=== PATIENT | male | born 1985 | race Caucasian/White ===

== ENCOUNTER → 2016-09-16 | Outpatient (CLI) | payer BC ==
[2016-09-16 08:26] LABS: ABSOLUTE BASOPHILS # (AUTO) 0.1 10^3/uL (0.0-0.2); ABSOLUTE EOSINOPHILS # (AUTO) 0.1 10^3/uL (0.0-0.6); ABSOLUTE LYMPHOCYTES (AUTO) 2.4 10^3/uL (0.5-4.7); ABSOLUTE NEUT (AUTO) 4.1 10^3/uL (1.7-8.2); BASOPHILS % (AUTO) 0.9 % (0-2); EOSINOPHILS % (AUTO) 1.5 % (0-6); HEMATOCRIT 51.9 % (37.9-51.0); HEMOGLOBIN 18.3 g/dL (13.5-17.0); LYMPHOCYTES % (AUTO) 31.3 % (13-45); MEAN CORPUSCULAR HEMOGLOBIN 30.2 pg (27.0-33.4); MEAN CORPUSCULAR HGB CONC 35.2 g/dL (32.0-36.0); MEAN CORPUSCULAR VOLUME 86 fl (80-97); MONOCYTES % (AUTO) 12.6 % (3-13); RED BLOOD COUNT 6.05 10^6/uL (4.35-5.55); RED CELL DISTRIBUTION WIDTH 12.7 % (11.5-14.0); SEGMENTED NEUTROPHILS % (AUTO) 53.7 % (42-78); WHITE BLOOD COUNT 7.6 10^3/uL (4.0-10.5)
[2016-09-16 08:30] LABS: ABSOLUTE BASOPHILS # (AUTO) 0.1 10^3/uL (0.0-0.2); ABSOLUTE EOSINOPHILS # (AUTO) 0.1 10^3/uL (0.0-0.6); ABSOLUTE LYMPHOCYTES (AUTO) 2.4 10^3/uL (0.5-4.7); ABSOLUTE NEUT (AUTO) 4.1 10^3/uL (1.7-8.2); BASOPHILS % (AUTO) 0.9 % (0-2); EOSINOPHILS % (AUTO) 1.5 % (0-6); HEMATOCRIT 51.9 % (37.9-51.0); HEMOGLOBIN 18.3 g/dL (13.5-17.0); LYMPHOCYTES % (AUTO) 31.3 % (13-45); MEAN CORPUSCULAR HEMOGLOBIN 30.2 pg (27.0-33.4); MEAN CORPUSCULAR HGB CONC 35.2 g/dL (32.0-36.0); MEAN CORPUSCULAR VOLUME 86 fl (80-97); MONOCYTES % (AUTO) 12.6 % (3-13); RED BLOOD COUNT 6.05 10^6/uL (4.35-5.55); RED CELL DISTRIBUTION WIDTH 12.7 % (11.5-14.0); SEGMENTED NEUTROPHILS % (AUTO) 53.7 % (42-78); WHITE BLOOD COUNT 7.6 10^3/uL (4.0-10.5)
[2016-09-16 09:02] LABS: ALANINE AMINOTRANSFERASE 34 U/L (21-72); ALBUMIN 5.4 g/dL (3.5-5.0); ALKALINE PHOSPHATASE 69 U/L (38-126); ANION GAP 14 (5-19); ASPARTATE AMINO TRANSFERASE 24 U/L (17-59); BILIRUBIN,TOTAL 1.2 mg/dL (0.2-1.3); BLOOD UREA NITROGEN 20 mg/dL (7-20); CALCIUM 10.5 mg/dL (8.4-10.2); CARBON DIOXIDE 32 mmol/L (22-30); CHLORIDE 94 mmol/L (98-107); CHOLESTEROL 271.99 mg/dL (0-200); CREATININE RESULT 1.13 mg/dL (0.52-1.25); Direct HDL 76 mg/dL (>40); GLUCOSE 97 mg/dL (75-110); POTASSIUM 3.5 mmol/L (3.6-5.0); SODIUM 139.9 mmol/L (137-145); TOTAL PROTEIN 7.9 g/dL (6.3-8.2); TRIGLYCERIDES 145 mg/dL (<150)
[2016-09-16 09:12] LABS: ERYTHROCYTE SEDIMENTATION RATE 3 mm/hr (0-15)
[2016-09-16 09:13] LABS: DIRECT LDL 150 mg/dL (<100)
[2016-09-17 11:38] LABS: JO-1 ANTIBODY <0.2 AI (0.0-0.9)
[2016-09-18 07:50] LABS: CYCLIC CITRUL PEPTIDE IGG/A AB 2 units (0-19)
[2016-09-19 17:37] LABS: CYTOPLASMIC (C-ANCA) <1:20 titer (Neg:<1:20)
[2016-09-21 13:31] LABS: HLA B 27 DISEASE ASSOCIATION Negative (.)
== END ==
LOC: OD 07:14
DX: I10 Essential (primary) hypertension (principal); Z79.899 Other long term (current) drug therapy; I77.6 Arteritis, unspecified
CPT/HCPCS: 36415; 80053; 80061; 83036; 84443; 85025; 85652; 86021; 86140; 86200; 86225; 86235; 86430; 86812

== ENCOUNTER → 2016-09-30 | Outpatient (CLI) | payer BC ==
[2016-09-30 12:06] LABS: APPEARANCE,URINE CLEAR; BILIRUBIN,URINE NEGATIVE (NEGATIVE); GLUCOSE, URINE NEGATIVE (NEGATIVE); KETONES,URINE NEGATIVE (NEGATIVE); LEUKOCYTE ESTERASE,URINE NEGATIVE (NEGATIVE); NITRITE,URINE NEGATIVE (NEGATIVE); PROTEIN,URINE NEGATIVE (NEGATIVE); URINE SPECIFIC GRAVITY 1.013; UROBILINOGEN,URINE NEGATIVE mg/dL (<2.0)
[2016-09-30 12:26] LABS: CALCIUM 10.1 mg/dL (8.4-10.2); PHOSPHORUS 3.6 mg/dL (2.5-4.5)
== END ==
LOC: OD 11:00
DX: E83.52 Hypercalcemia (principal); D75.1 Secondary polycythemia; E66.9 Obesity, unspecified; E78.00 Pure hypercholesterolemia, unspecified
CPT/HCPCS: 36415; 81001; 82310; 82668; 83970; 84100

== ENCOUNTER → 2016-09-30 | Outpatient (CLI) | payer BC | LOC: OD 11:51 | DX: I10 Essential (primary) hypertension (principal) | CPT/HCPCS: 71020 ==

== ENCOUNTER → 2017-02-10 | Outpatient (CLI) | payer BC ==
[2017-02-10 08:32] LABS: ALANINE AMINOTRANSFERASE 41 U/L (21-72); ALBUMIN 4.5 g/dL (3.5-5.0); ALKALINE PHOSPHATASE 73 U/L (38-126); ANION GAP 10 (5-19); ASPARTATE AMINO TRANSFERASE 25 U/L (17-59); BILIRUBIN,DIRECT 0.2 mg/dL (0.0-0.4); BILIRUBIN,TOTAL 0.8 mg/dL (0.2-1.3); BLOOD UREA NITROGEN 18 mg/dL (7-20); CALCIUM 9.5 mg/dL (8.4-10.2); CARBON DIOXIDE 27 mmol/L (22-30); CHLORIDE 103 mmol/L (98-107); CHOLESTEROL 157.88 mg/dL (0-200); CREATININE RESULT 0.98 mg/dL (0.52-1.25); Direct HDL 56 mg/dL (>40); GLUCOSE 94 mg/dL (75-110); POTASSIUM 4.4 mmol/L (3.6-5.0); SODIUM 140.2 mmol/L (137-145); TOTAL PROTEIN 7.1 g/dL (6.3-8.2); TRIGLYCERIDES 96 mg/dL (<150)
[2017-02-10 08:43] LABS: DIRECT LDL 84 mg/dL (<100)
== END ==
LOC: OD 07:20
PROVIDERS: ATTEND Internal Medicine
DX: E78.2 Mixed hyperlipidemia (principal)
CPT/HCPCS: 36415; 80053; 80061

== ENCOUNTER → 2017-03-24 | Outpatient (CLI) | payer BC ==
[2017-03-24 13:50] LABS: ABSOLUTE EOSINOPHILS # (AUTO) 0.1 10^3/uL (0.0-0.6); ABSOLUTE LYMPHOCYTES (AUTO) 1.3 10^3/uL (0.5-4.7); ABSOLUTE MONOCYTES (AUTO) 0.4 10^3/uL (0.1-1.4); ABSOLUTE NEUT (AUTO) 3.4 10^3/uL (1.7-8.2); BASOPHILS % (AUTO) 0.8 % (0-2); EOSINOPHILS % (AUTO) 2.3 % (0-6); HEMOGLOBIN 15.5 g/dL (13.5-17.0); HGB HCT DIFFERENCE 1.5; LYMPHOCYTES % (AUTO) 25.4 % (13-45); MEAN CORPUSCULAR HEMOGLOBIN 29.7 pg (27.0-33.4); MEAN CORPUSCULAR HGB CONC 34.6 g/dL (32.0-36.0); MEAN CORPUSCULAR VOLUME 86 fl (80-97); MONOCYTES % (AUTO) 8.1 % (3-13); RED BLOOD COUNT 5.23 10^6/uL (4.35-5.55); RED CELL DISTRIBUTION WIDTH 13.3 % (11.5-14.0); SEGMENTED NEUTROPHILS % (AUTO) 63.4 % (42-78); WHITE BLOOD COUNT 5.3 10^3/uL (4.0-10.5)
[2017-03-24 14:21] LABS: ANION GAP 10 (5-19); BLOOD UREA NITROGEN 11 mg/dL (7-20); CALCIUM 10.1 mg/dL (8.4-10.2); CARBON DIOXIDE 28 mmol/L (22-30); CHLORIDE 102 mmol/L (98-107); CREATININE RESULT 0.87 mg/dL (0.52-1.25); GLUCOSE 96 mg/dL (75-110); POTASSIUM 4.1 mmol/L (3.6-5.0); SODIUM 140.2 mmol/L (137-145)
--- NOTE | 2017-03-25 00:06 | EKG REPORT ---
SEVERITY:- ABNORMAL ECG - SINUS RHYTHM PROBABLE LEFT VENTRICULAR HYPERTROPHY : Confirmed by: Shahriar Aguilar 25-Mar-2017 00:05:50
== END ==
LOC: OD 11:51
PROVIDERS: ATTEND Orthopaedic Surgery
DX: M25.512 Pain in left shoulder (principal)
CPT/HCPCS: 36415; 80048; 85025; 93005; 93010

== ENCOUNTER 2017-06-14 20:19 | Emergency (ER) | payer BC ==
[2017-06-14] MEDS ORDERED: HALOPERIDOL LACTATE INJ 5 MG/1 ML VIAL ONE (20:25)
[2017-06-14] MEDS ORDERED: MIDAZOLAM 2 MG/2 ML INJ ONE (20:25)
--- NOTE | 2017-06-14 21:03 | ER Document Report ---
ED Psych Disorder / Suicide - General Chief Complaint: Psych Problem Stated Complaint: PSYCH EVAL Time Seen by Provider: 06/14/17 20:31 Notes: The patient is a 32-year-old male, past medical history bipolar toshia, PTSD, presents with 1 week of feeling manic. He was found by EMS and [employer] outside acting erratic. When he arrived to the ER, he began to punch the wall and a table. He broke a table in the ER. Patient denies alcohol abuse, drug abuse, hallucinations, headache, suicidal ideation, homicidal ideation, blurry vision or fevers. TRAVEL OUTSIDE OF THE [place] IN LAST 30 DAYS: No - Related Data Allergies/Adverse Reactions: amoxicillin [Amoxicillin] Allergy (Mild, Verified 02/09/16 00:12) Past Medical History - General Information source: Patient - Social History Smoking Status: Never Smoker Frequency of alcohol use: Occasional Drug Abuse: None Family History: Reviewed & Not Pertinent Neurological Medical History: Reports: Hx Migraine Psychiatric Medical History: Reports: Hx Anxiety, Hx Depression - Immunizations Hx Diphtheria, Pertussis, Tetanus Vaccination: Yes Review of Systems - Review of Systems Notes: REVIEW OF SYSTEMS: CONSTITUTIONAL: -fevers, -chills EENT: -eye pain, -difficulty swallowing, -nasal congestion CARDIOVASCULAR:-chest pain, -syncope. RESPIRATORY: -cough, -SOB GASTROINTESTINAL: -abdominal pain, - nausea, -vomiting, -diarrhea GENITOURINARY: -dysuria, -hematuria MUSCULOSKELETAL: -back pain, -neck pain SKIN: -rash or skin lesions. HEMATOLOGIC: -easy bruising or bleeding. LYMPHATIC: -swollen, enlarged glands. NEUROLOGICAL: -altered mental status or loss of consciousness, -headache, - neurologic symptoms PSYCHIATRIC: -anxiety, -depression, +aggression, -SI or HI ALL OTHER SYSTEMS REVIEWED AND NEGATIVE. Physical Exam - Vital signs Vitals: Temp Pulse Resp BP Pulse Ox 98.2 F 133 H 18 160/106 H 98 06/14/17 20:54 06/14/17 20:54 06/14/17 20:54 06/14/17 20:54 06/14/17 20:54 - Notes Notes: PHYSICAL EXAMINATION: GENERAL: Initially agitated. HEAD: Atraumatic, normocephalic. EYES: Pupils equal round and reactive to light, extraocular movements intact, sclera anicteric, conjunctiva are normal. ENT: nares patent, oropharynx clear without exudates. Moist mucous membranes. NECK: Normal range of motion, supple without lymphadenopathy LUNGS: Breath sounds clear to auscultation bilaterally and equal. No wheezes rales or rhonchi. HEART: Tachycardia. ABDOMEN: Soft, nontender, normoactive bowel sounds. No guarding, no rebound. No masses appreciated. EXTREMITIES: Normal range of motion, no pitting or edema. No cyanosis. NEUROLOGICAL: Cranial nerves grossly intact. Normal speech, normal gait. Normal sensory and motor exams. PSYCH: Aggressive behavior. Denies SI or HI. SKIN: Warm, Dry, normal turgor, no rashes or lesions noted. Course - Re-evaluation Re-evalutation: Patient arrives to the ER aggressive and saying that he is manic. Security met patient and IM Aaron and Versed was provided to patient with improvement of his aggressive behavior. Patient says that he is taking his medications, but cannot remember which ones they are. IVC filled out due to patient's danger to himself and others. ETOH level noted to be 232. Will have mental health evaluate patient in the morning. - Vital Signs Vital signs: Temp Pulse Resp BP Pulse Ox 98.2 F 133 H 18 160/106 H 98 06/14/17 20:54 06/14/17 20:54 06/14/17 20:54 06/14/17 20:54 06/14/17 20:54 - Laboratory Result Diagrams: 06/14/17 21:00 06/14/17 21:00 Laboratory results interpreted by me: 06/14/17 21:00 Direct Bilirubin 0.5 H Salicylates < 1.0 L Acetaminophen < 10 L Discharge - Discharge Clinical Impression: Aggressive behavior of adult, Toshia Alcohol intoxication Qualifiers: Complication of substance-induced condition: uncomplicated Qualified Code(s): F10.920 - Alcohol use, unspecified with intoxication, uncomplicated Condition: Fair Disposition: PSYCH HOSP/UNIT
[2017-06-14 22:20] LABS: ABSOLUTE EOSINOPHILS # (AUTO) 0.1 10^3/uL (0.0-0.6); ABSOLUTE LYMPHOCYTES (AUTO) 1.3 10^3/uL (0.5-4.7); ABSOLUTE MONOCYTES (AUTO) 0.5 10^3/uL (0.1-1.4); ABSOLUTE NEUT (AUTO) 5.9 10^3/uL (1.7-8.2); BASOPHILS % (AUTO) 0.5 % (0-2); HEMATOCRIT 41.8 % (37.9-51.0); HEMOGLOBIN 14.9 g/dL (13.5-17.0); HGB HCT DIFFERENCE 2.9; MEAN CORPUSCULAR HEMOGLOBIN 30.1 pg (27.0-33.4); MEAN CORPUSCULAR HGB CONC 35.6 g/dL (32.0-36.0); MEAN CORPUSCULAR VOLUME 85 fl (80-97); MONOCYTES % (AUTO) 6.9 % (3-13); RED BLOOD COUNT 4.94 10^6/uL (4.35-5.55); RED CELL DISTRIBUTION WIDTH 13.7 % (11.5-14.0); SEGMENTED NEUTROPHILS % (AUTO) 74.6 % (42-78); WHITE BLOOD COUNT 7.9 10^3/uL (4.0-10.5)
[2017-06-14 22:48] LABS: ALANINE AMINOTRANSFERASE 38 U/L (21-72); ALBUMIN 4.5 g/dL (3.5-5.0); ALCOHOL 232 mg/dL (NONE DETECTED); ALKALINE PHOSPHATASE 73 U/L (38-126); ANION GAP 14 (5-19); ASPARTATE AMINO TRANSFERASE 27 U/L (17-59); BILIRUBIN,DIRECT 0.5 mg/dL (0.0-0.4); BILIRUBIN,TOTAL 0.7 mg/dL (0.2-1.3); BLOOD UREA NITROGEN 10 mg/dL (7-20); CALCIUM 9.3 mg/dL (8.4-10.2); CARBON DIOXIDE 26 mmol/L (22-30); CHLORIDE 103 mmol/L (98-107); CREATININE RESULT 0.76 mg/dL (0.52-1.25); GLUCOSE 89 mg/dL (75-110); POTASSIUM 3.9 mmol/L (3.6-5.0); SODIUM 142.6 mmol/L (137-145); TOTAL PROTEIN 6.9 g/dL (6.3-8.2)
--- NOTE | 2017-06-15 00:07 | EKG REPORT ---
SEVERITY:- ABNORMAL ECG - SINUS RHYTHM PROBABLE LEFT VENTRICULAR HYPERTROPHY PROLONGED QT INTERVAL : Confirmed by: Shahriar Aguilar 15-Jun-2017 00:07:05
[2017-06-15 01:09] LABS: APPEARANCE,URINE CLEAR; BILIRUBIN,URINE NEGATIVE (NEGATIVE); GLUCOSE, URINE NEGATIVE (NEGATIVE); KETONES,URINE NEGATIVE (NEGATIVE); LEUKOCYTE ESTERASE,URINE NEGATIVE (NEGATIVE); NITRITE,URINE NEGATIVE (NEGATIVE); PROTEIN,URINE NEGATIVE (NEGATIVE); URINE SPECIFIC GRAVITY 1.002; UROBILINOGEN,URINE NEGATIVE mg/dL (<2.0)
[2017-06-15 01:41] LABS: URINE BARBITURATES SCREEN NEGATIVE; URINE METHADONE SCREEN NEGATIVE; URINE OPIATES LOW NEGATIVE; URINE PHENCYCLIDINE SCREEN NEGATIVE
--- NOTE | 2017-06-15 10:10 | PSYCHOLOGICAL NOTE ---
Psych Note - Psych Note Psych Note: The patient is a 32-year-old male, past medical history bipolar rui, PTSD, presents with 1 week of feeling manic. He was found by EMS and [employer] outside acting erratic. When he arrived to the ER, he began to punch the wall and a table. He broke a table in the ER. Patient denies alcohol abuse, drug abuse, hallucinations, headache, suicidal ideation, homicidal ideation, blurry vision or fevers. Patient disclosed that he called EMS because he was suffering from "a little bit of rui." Patient disclosed he did not want to act out in front of his children. Patient admits to be drinking last evening stating "it was the wrong thing to do." Patient denies drinking daily stating that he drinks 3-6 beers every other week. Patient is noted to have a past issue with drinking daily and diagnosed as alcoholic. Patient denies this stating that he drinks daily a long time ago and does not anymore. Patient disclosed that he does see a therapist on [email or web address] by the name is Nadiya who he speaks to daily on the phone and in person weekly. Patient receives his medications through [facility]. Patient disclosed it is always hard after he has had a surgery; patient has had multiple surgeries due to injuries. Patient disclosed his surgery was 2016 for his shoulder; this was he 5th shoulder surgery. Patient reports that he was denied disability however really wants to work. Patient states that he will be going to vocational rehab once he is cleared from surgery. Attempted contact with patient's therapist, Lakesha Rome [phone]- left message. Patient is alert and orientated to person, place, time and circumstance. Mood is euthymic with congruent affect. Patient denies suicidal and homicidal ideation disclosing he [facility] because he been suffering from rui and did not want to have his family see him this way. Patient arrived [facility] highly intoxicated. Patient denies homicidal ideation. Patient denies auditory and visual hallucinations. Delusions are absent behaviors congruent with intact reality based presentation i.e. organized, linear, rational thinking. Eye contact was fair. Conversational speech was within normal rate tone and prosody. Intellectual abilities appear to be within the average range. Attention and concentration are good. Insight, judgment, impulse control are poor do to alcoholism. 311 (F32.9) Unspecified Depressive Disorder by history 291.9 (F10.99) Unspecified Alcohol-Related Disorder by history Impression\\plan: Patient is recommended for rescind of IVC and is considered psychiatrically clear. Patient does not meet IVC criteria per [place] GS 122C. Patient denies suicidal or homicidal ideation. Delusions are absent and behaviors congruent with intact reality based presentation. Patient discloses concern for rui however patient is not presenting in manic state i.e. organized, linear, rational thinking, sitting calmly with no psychomotor agitation, and conversational speech is within normal rate tone and prosody. Patient [facility] highly intoxicated, He denies alcohol abuse; however, patient does have a charted history of alcoholism. While under the influence the patient punched a hole in the wall and broke a table; patient is now sober and no longer has impaired cognitive functioning. Patient is recommended to continue outpatient therapy through his provider. Dr. Marrero was consulted and the care management of this patient; attending physician is agreement with recommendations and disposition.
--- NOTE | 2017-06-15 10:33 | ER Document Report ---
Doctor's Note Notes: 06/15/17 10:31 32-year-old male, past medical history bipolar rui, PTSD, presents with 1 week of feeling manic. Patient's blood alcohol upon arrival to 32. Patient currently denies any auditory or visual hallucinations. He denies any homicidal suicidal ideations. Patient is currently calm and cooperative in no acute distress. He does not have pressured speech. He is able to follow conversations congruently. Patient was very agitated last night when intoxicated. He is calm and pleasant at this time. Psychiatry is seen and evaluated the patient. We are determining disposition at this time. Labs and vital signs as recorded.
[2017-06-15 15:16] VITALS: BP 151/108
== END 2017-06-15 15:12 | disposition home or self-care (01) ==
LOC: ER 20:19
DX: F10.920 Alcohol use, unspecified with intoxication, uncomplicated (principal); R46.89 Other symptoms and signs involving appearance and behavior; F31.9 Bipolar disorder, unspecified; F43.10 Post-traumatic stress disorder, unspecified
CPT/HCPCS: 93005; 99285; 96372; 36415; 80307 ×4; 85025; 80053; 81001; 93010; J2250; J1630

== ENCOUNTER → 2017-07-08 | Outpatient (CLI) | payer BC, OTHER ==
[2017-07-08 09:51] LABS: ABSOLUTE EOSINOPHILS # (AUTO) 0.1 10^3/uL (0.0-0.6); ABSOLUTE LYMPHOCYTES (AUTO) 1.4 10^3/uL (0.5-4.7); ABSOLUTE MONOCYTES (AUTO) 0.7 10^3/uL (0.1-1.4); ABSOLUTE NEUT (AUTO) 3.6 10^3/uL (1.7-8.2); BASOPHILS % (AUTO) 0.8 % (0-2); EOSINOPHILS % (AUTO) 2.1 % (0-6); HEMATOCRIT 46.5 % (37.9-51.0); HGB HCT DIFFERENCE 1.5; LYMPHOCYTES % (AUTO) 24.2 % (13-45); MEAN CORPUSCULAR HEMOGLOBIN 30.1 pg (27.0-33.4); MEAN CORPUSCULAR HGB CONC 34.3 g/dL (32.0-36.0); MEAN CORPUSCULAR VOLUME 88 fl (80-97); MONOCYTES % (AUTO) 11.8 % (3-13); RED CELL DISTRIBUTION WIDTH 13.9 % (11.5-14.0); SEGMENTED NEUTROPHILS % (AUTO) 61.1 % (42-78); WHITE BLOOD COUNT 5.9 10^3/uL (4.0-10.5)
[2017-07-08 09:56] LABS: ALANINE AMINOTRANSFERASE 61 U/L (21-72); ALBUMIN 4.6 g/dL (3.5-5.0); ALKALINE PHOSPHATASE 72 U/L (38-126); ANION GAP 12 (5-19); ASPARTATE AMINO TRANSFERASE 35 U/L (17-59); BILIRUBIN,DIRECT 0.3 mg/dL (0.0-0.4); BILIRUBIN,TOTAL 0.6 mg/dL (0.2-1.3); BLOOD UREA NITROGEN 14 mg/dL (7-20); CALCIUM 9.7 mg/dL (8.4-10.2); CARBON DIOXIDE 28 mmol/L (22-30); CHLORIDE 103 mmol/L (98-107); CHOLESTEROL 232.25 mg/dL (0-200); CREATININE RESULT 0.91 mg/dL (0.52-1.25); Direct HDL 62 mg/dL (>40); GLUCOSE 95 mg/dL (75-110); POTASSIUM 4.6 mmol/L (3.6-5.0); SODIUM 142.5 mmol/L (137-145); TRIGLYCERIDES 120 mg/dL (<150)
[2017-07-08 10:08] LABS: DIRECT LDL 140 mg/dL (<100); VALPROIC ACID 42.5 ug/mL (50.0-120.0)
[2017-07-08 10:27] LABS: THYROID STIMULATING HORMONE 0.92 uIU/mL (0.47-4.68)
== END ==
LOC: OD 08:18
PROVIDERS: ATTEND Nurse Practitioner Psychiatric/Mental Health
DX: F31.4 Bipolar disorder, current episode depressed, severe, without psychotic features (principal); Z79.899 Other long term (current) drug therapy
CPT/HCPCS: 36415; 80053; 80061; 80164; 84439; 84443; 85025

== ENCOUNTER 2017-09-06 19:29 | Emergency (ER) | payer BC ==
[2017-09-06 21:37] LABS: ABSOLUTE BASOPHILS # (AUTO) 0.1 10^3/uL (0.0-0.2); ABSOLUTE EOSINOPHILS # (AUTO) 0.1 10^3/uL (0.0-0.6); ABSOLUTE LYMPHOCYTES (AUTO) 1.8 10^3/uL (0.5-4.7); ABSOLUTE MONOCYTES (AUTO) 0.5 10^3/uL (0.1-1.4); ABSOLUTE NEUT (AUTO) 3.5 10^3/uL (1.7-8.2); BASOPHILS % (AUTO) 0.9 % (0-2); EOSINOPHILS % (AUTO) 2.4 % (0-6); HEMATOCRIT 46.8 % (37.9-51.0); HEMOGLOBIN 16.3 g/dL (13.5-17.0); LYMPHOCYTES % (AUTO) 30.1 % (13-45); MEAN CORPUSCULAR HEMOGLOBIN 30.1 pg (27.0-33.4); MEAN CORPUSCULAR HGB CONC 34.7 g/dL (32.0-36.0); MEAN CORPUSCULAR VOLUME 87 fl (80-97); MONOCYTES % (AUTO) 8.9 % (3-13); PLATELET COUNT 217 10^3/uL (150-450); RED CELL DISTRIBUTION WIDTH 13.1 % (11.5-14.0); SEGMENTED NEUTROPHILS % (AUTO) 57.7 % (42-78); TOTAL CELLS COUNTED % (AUTO) 100 %
--- NOTE | 2017-09-06 21:45 | ER Document Report ---
ED General - General Information source: Patient, Relative - TRAVEL OUTSIDE OF THE [place] IN LAST 30 DAYS: No - HPI Patient complains to provider of: took a few extra valium Onset: Just prior to arrival <BETH BLACKBURN E - Last Filed: 09/06/17 23:38> <CHRIS STEWART E - Last Filed: 09/07/17 10:17> - General Chief Complaint: Possible Overdose Stated Complaint: POSSIBLE OVERDOSE Time Seen by Provider: 09/06/17 20:53 - HPI Notes: Patient states he was having some beers and took in some hamburgers. He states he took an extra couple Valium throughout the day to help him rest. He states that he is ex- Loss meds he has had 3 shoulder surgeries as well as hip surgery. He states he has been unemployed for a year and he is stressed because he cannot provide for his family (BETH BLACKBURN) - Related Data Allergies/Adverse Reactions: amoxicillin [Amoxicillin] Allergy (Mild, Verified 02/09/16 00:12) Past Medical History - General Information source: Patient - Social History Smoking Status: Former Smoker Frequency of alcohol use: Occasional Lives with: Family Family History: Reviewed & Not Pertinent Patient has suicidal ideation: No Patient has homicidal ideation: No - Past Medical History Cardiac Medical History: Reports: None Pulmonary Medical History: Reports: None EENT Medical History: Reports: None Neurological Medical History: Reports: Hx Migraine Endocrine Medical History: Reports: None Renal/ Medical History: Reports: None. Denies: Hx Peritoneal Dialysis Malignancy Medical History: Reports None GI Medical History: Reports: None Musculoskeltal Medical History: Reports Hx Musculoskeletal Deformity - ankle, shoulder, hip, Reports Hx Musculoskeletal Trauma Psychiatric Medical History: Reports: Hx Anxiety, Hx Depression Traumatic Medical History: Reports: Hx Fractures Past Surgical History: Reports: Hx Orthopedic Surgery - Immunizations Hx Diphtheria, Pertussis, Tetanus Vaccination: Yes <BETH BLACKBURN E - Last Filed: 09/06/17 23:38> Review of Systems - Review of Systems Constitutional: No symptoms reported EENT: No symptoms reported Cardiovascular: No symptoms reported Respiratory: No symptoms reported Gastrointestinal: No symptoms reported Genitourinary: No symptoms reported Male Genitourinary: No symptoms reported Musculoskeletal: Joint pain Skin: No symptoms reported Hematologic/Lymphatic: No symptoms reported Neurological/Psychological: No symptoms reported <ANALILIASAVANNAMARYANN RoseMARIANGEL E - Last Filed: 09/06/17 23:38> Physical Exam <BETH BLACKBURN E - Last Filed: 09/06/17 23:38> <CHRIS STEWART E - Last Filed: 09/07/17 10:17> - Vital signs Vitals: Resp 22 H 09/06/17 19:41 - Notes Notes: PHYSICAL EXAMINATION: GENERAL: Well-appearing, well-nourished HEAD: Atraumatic, normocephalic. EYES: Pupils equal round and reactive to light, extraocular movements intact, sclera anicteric, conjunctiva are normal. ENT: Nares patent, oropharynx clear without exudates. Moist mucous membranes. NECK: Normal range of motion, supple without lymphadenopathy LUNGS: Breath sounds clear to auscultation bilaterally and equal. No wheezes rales or rhonchi. HEART: Regular rate and rhythm without murmurs ABDOMEN: Soft, nontender, nondistended abdomen. No guarding, no rebound. No masses appreciated. Musculoskeletal: Normal range of motion, no pitting or edema. No cyanosis. NEUROLOGICAL: Cranial nerves grossly intact. Normal speech, normal gait. Normal sensory, motor exams PSYCH: Patient's is mildly anxious and teary-eyed. He originally was not cooperative and then became very cooperative. Eye contact. SKIN: Warm, Dry, normal turgor, no rashes or lesions noted. (BETH BLACKBURN) Course - Laboratory Result Diagrams: 09/06/17 19:44 09/06/17 19:44 <ANALILIASAVANNAMiltonBETH E - Last Filed: 09/06/17 23:38> - Laboratory Result Diagrams: 09/06/17 19:44 09/06/17 19:44 <CHRIS STEWART E - Last Filed: 09/07/17 10:17> - Re-evaluation Re-evalutation: 09/06/17 21:42 Talked to the patient he stated that he was cooking hamburgers and had a few beers today and then he took a few extra Valium so he can relax. When I called the back into the hallway to speak with her she has had a whole different story. She states that she came home from work the patient was intoxicated his trazodone and Valium were on the floor and he ran into the bathroom trying to make himself vomit. She stated he wrote a note stating that he was depressed because he could no longer take care of the family. Patient's states that patient was home with a 6-year-old son when all this happened. She states grandfather was also in house. She states patient has a history of suicidal ideation and attempts in the past and there is no firearms at the house. Patient is ex- and [employer]. He has not worked in a year and a half and is very depressed because he cannot provide for his family. At 2130 I did go back in the room patient had run down the okeefe and security had brought him back. Patient was sitting on the bed. He was refusing to cooperate. He did have an IV and blood was drawn however he pulled the IV out himself. They were to urinals full of very light colored yellow urine on the counter. Patient kept asking me to explain why he had to stay in the emergency department I did explain to him that I could not definitively say he would be safe to go home as he was exhibiting signs of suicidal ideation. States he has been suicidal "for years". He states "how would you feel if you could not take care of your family because you could not hold a job because you are injured". Patient had tears in his eyes while stating this. Patient refused to cooperate. Patient refused to cooperate. He was placed in restraints. The IVC and a psych consult will be obtained in the morning. 09/06/17 23:38 Patient did ask to speak with me. I did go in to see him. He was unrestrained sitting style on the edge of the bed. He was asking if there is anything he could do to expedite the process because he is afraid that he may get a phone call for job offer tomorrow and he will not be at home to receive the phone call. Told him that mental health comes in at 9 AM in the morning and he cannot be released until the talk to him and decide on his disposition. Patient was teary-eyed and stated that he has just been under a lot of stress lately with not being able to provide for his family as well as having multiple surgeries and injuries. I think him for giving me the information and talking to me. I reassured him that mental health will see him as soon as possible in the morning. 09/06/17 23:41 (BETH BLACKBURN) - Vital Signs Vital signs: Temp Pulse Resp BP Pulse Ox 98.5 F 78 18 126/74 H 97 09/07/17 07:26 09/07/17 07:26 09/07/17 07:26 09/07/17 07:26 09/07/17 07:26 - Laboratory Laboratory results interpreted by me: 09/06/17 09/06/17 19:41 19:44 Urine Blood MODERATE H Salicylates < 1.0 L Acetaminophen < 10 L Discharge <BETH BLACKBURN E - Last Filed: 09/06/17 23:38> <CHRIS STEWART E - Last Filed: 09/07/17 10:17> - Discharge Clinical Impression: Alcohol intoxication Qualifiers: Complication of substance-induced condition: uncomplicated Qualified Code(s): F10.920 - Alcohol use, unspecified with intoxication, uncomplicated Acute drug overdose Qualifiers: Encounter type: initial encounter Injury intent: undetermined intent Qualified Code(s): T50.904A - Poisoning by unspecified drugs, medicaments and biological substances, undetermined, initial encounter Depression Qualifiers: Depression Type: unspecified Qualified Code(s): F32.9 - Major depressive disorder, single episode, unspecified Condition: Stable Disposition: HOME, SELF-CARE Additional Instructions: Go to [facility] today at noon as already scheduled. Return to the ER if you have any thoughts of hurting herself or anyone else. DEPRESSION: Your evaluation reveals that you have mental depression. While symptoms may be vague, they often include disturbance of sleep, fatigue, loss of appetite , and general loss of interest in life. While depression may be a side effect of drugs, or a reaction to a major change in your life, many cases have no known cause. If depression is acute, and related to a major loss in your life, you can expect it to clear completely with time. If you have been depressed a long time , are prone to repeated bouts of depression or low mood, or have been thinking of suicide, get help. Depression can be treated with anti-depressant medication and counselling. Long-term depression will often take a few weeks to clear, even with appropriate medication. Follow-up care is important. SUICIDAL IDEATION: Suicidal ideation is a common medical term for thoughts about suicide, which may be as detailed as a formulated plan, without the suicidal act itself. Although most people who undergo suicidal ideation do not commit suicide, some go on to make suicide attempts. The range of suicidal ideation varies greatly from fleeting to detailed planning, role playing, and unsuccessful attempts. While thoughts about suicide are common, most people do not carry out serious actions to commit suicide. Based upon your evaluation and discussion with you, we do not believe you are currently at risk to act upon your thoughts of suicide. You have agreed to return to the Emergency Department, at any time , if you feel inclined to act upon your suicidal thoughts. FOLLOW-UP CARE: If you have been referred to a physician for follow-up care, call the physician s office for an appointment as you were instructed or within the next two days. If you experience worsening or a significant change in your symptoms, notify the physician immediately or return to the Emergency Department at any time for re-evaluation. ACUTE ALCOHOL INTOXICATION and ALCOHOL ABUSE: Your evaluation revealed very high levels of alcohol. You can from drinking a large amount of alcohol rapidly! Further, there's the risk of falls , traffic accidents, and fights. A high portion (about 50 percent) of the serious injuries seen in hospital emergency rooms are caused by alcohol. Alcohol overdosage is usually due to an underlying emotional or psychiatric problem. You may benefit from counselling. If "binge" drinking is an ongoing problem for you, or if you drink ANY AMOUNT of alcohol EVERY day, you most likely have a tendency to alcoholism. You should avoid alcohol totally. We can refer you for treatment. Persons with alcohol problems are often also prone to other addictions -- you should discuss any use of medications or drugs with the doctor. You should be watched at home for the next several hours by someone who has not been drinking. Get extra fluids for the next 24 hours. Call the doctor if there is repeated vomiting, increasing headache, decreasing level of alertness, or any other worsening. CHRONIC ALCOHOLISM and ALCOHOL ABUSE: Your evaluation reveals evidence of chronic alcoholism, an addiction to alcohol. The tendency to alcoholism may be inherited. Chronic use of alcohol weakens muscles, causes fatty deposits in the liver , damages the stomach, makes you more prone to infections, and can cause defects in unborn children. In the long run, brain atrophy and cirrhosis of the liver result. You are also at greater risk for certain types of cancer, such as cancer of the mouth, throat, stomach, and liver. Counselling services are available to help you. In-hospital treatment programs often help. Support groups such as Alcoholics Anonymous can be very useful in beating this addiction. Your physician can make a referral for you. As alcoholics often are prone to other addictions, you should discuss your use of any other medications with the doctor. OVERDOSE / INGESTION: You have taken more medication than you should have. After your evaluation and care, it is felt that your overdose is not likely to be harmful or of any significant consequences to you and you are being discharged. In the future, you should be careful not to take more medications than what is prescribed for you. Although your overdose does not seem to be of any danger to you at this time, if you develop any unusual or unexpected symptoms after your discharge, you should return to the Emergency Department immediately for re-evaluation. INSTRUCTIONS FOR HOME CARE FOLLOWING DRUG OVERDOSAGE: The doctor feels it's safe for you to go home. You will need to be observed. If charcoal and a laxative was given to you, expect some loose black stools soon. Take no medications unless approved by a physician, including alcohol. If drowsy, lie on your stomach or side for sleeping to avoid aspiration if vomiting occurs. Take only liquids by mouth until there is no more nausea. FOR THE OBSERVER: Observe the patient for the next 24 hours and call or go to the hospital if any of the following are noted: prolonged or repeated vomiting, difficulty in arousing, convulsions (seizures or fits), fever, persistent cough, breathing that is too slow or too rapid, or confused or bizarre behavior. If a counselling visit has been arranged, make sure the patient attends. Call the physician or poison control if you have questions. FOLLOW-UP CARE: If you have been referred to a physician for follow-up care, call the physician s office for an appointment as you were instructed or within the next two days. If you experience worsening or a significant change in your symptoms, notify the physician immediately or return to the Emergency Department at any time for re-evaluation. Referrals: [facility] [Outside] - Follow up as needed
[2017-09-06 21:57] LABS: ALANINE AMINOTRANSFERASE 40 U/L (21-72); ALCOHOL 215 mg/dL (NONE DETECTED); ALKALINE PHOSPHATASE 69 U/L (38-126); ANION GAP 14 (5-19); ASPARTATE AMINO TRANSFERASE 34 U/L (17-59); BILIRUBIN,DIRECT 0.2 mg/dL (0.0-0.4); BILIRUBIN,TOTAL 0.5 mg/dL (0.2-1.3); BLOOD UREA NITROGEN 14 mg/dL (7-20); CALCIUM 9.7 mg/dL (8.4-10.2); CARBON DIOXIDE 26 mmol/L (22-30); CHLORIDE 102 mmol/L (98-107); GLUCOSE 84 mg/dL (75-110); POTASSIUM 4.2 mmol/L (3.6-5.0); SODIUM 142.1 mmol/L (137-145); TOTAL PROTEIN 7.4 g/dL (6.3-8.2)
[2017-09-06 22:04] LABS: ACETAMINOPHEN < 10 ug/mL (10-30); SALICYLATE < 1.0 mg/dL (2.0-20.0)
[2017-09-06 22:23] LABS: APPEARANCE,URINE CLEAR; BILIRUBIN,URINE NEGATIVE (NEGATIVE); COLOR,URINE COLORLESS; GLUCOSE, URINE NEGATIVE (NEGATIVE); KETONES,URINE NEGATIVE (NEGATIVE); LEUKOCYTE ESTERASE,URINE NEGATIVE (NEGATIVE); NITRITE,URINE NEGATIVE (NEGATIVE); PROTEIN,URINE NEGATIVE (NEGATIVE); URINE SPECIFIC GRAVITY 1.003; UROBILINOGEN,URINE NEGATIVE mg/dL (<2.0)
[2017-09-06 22:38] LABS: URINE AMPHETAMINES SCREEN NEGATIVE; URINE BARBITURATES SCREEN NEGATIVE; URINE BENZODIAZEPINES SCREEN UNCONFIRMED POSITIVE; URINE COCAINE SCREEN NEGATIVE; URINE MARIJUANA (THC) SCREEN NEGATIVE; URINE METHADONE SCREEN NEGATIVE; URINE PHENCYCLIDINE SCREEN NEGATIVE
[2017-09-06] MEDS ORDERED: DIPHENHYDRAMINE HCL 25 MG CAPSULE PO ONE (23:40)
--- NOTE | 2017-09-07 09:20 | EKG REPORT ---
SEVERITY:- BORDERLINE ECG - SINUS TACHYCARDIA PROBABLE LEFT ATRIAL ABNORMALITY BORDERLINE INFERIOR Q WAVES : Confirmed by: Shahriar Aguilar 07-Sep-2017 09:19:56
--- NOTE | 2017-09-07 09:44 | ER Document Report ---
Doctor's Note Notes: 09/07/17 09:43 patient seen and examined by myself mental health this morning. He is cooperative and denies any current suicidal thoughts. He said that he just had a bad night because he was upset about being unemployed. He has an appointment with his mental health team at noon today and he is awaiting a call for a job offer also today. He seems hopeful. is in the room and agrees with discharge. Given very strict return precautions, especially about any suicidal thoughts, and he understands.
--- NOTE | 2017-09-07 10:11 | PSYCHOLOGICAL NOTE ---
Psych Note - Psych Note Psych Note: Reason for consult: suicidal ideation, IVC Consent Permissions: none given Pt arrived via medic 3 from home. Pt called due to pt taking diazapam 5 mg 10 - 15 pills and drinking alcohol. Pt has a hx of depression and Bipolar disorder. Upon assessment pt is alert and oriented x3. Pt states he is fine and he wants to go home. Patient disclosed that he has been having a lot of anxiety recently. He states that he took Valium throughout the day and attempt to control his anxiety and relax him; "I took between 5 and 10 yesterday, some was earlier in the day though." Patient disclosed that he was feeling depressed however denies wanting to hurt himself only wanting to relax and calm his anxiety. Patient states that he is currently unemployed however he is supposed to be receiving a call back today or tomorrow in [place]ia worker. Patient states that waiting for the phone calls been very stressful he is also "scared I am going to fail again." Patient disclosed that he has a lot of pain and has had to quit multiple jobs because of that pain. Patient reports that he has an appointment today at noon for her medication management at [facility] with Mona Robertson. He also disclosed that he sees his therapist weekly on Saturdays. [place] substance abuse report was evaluated. It is noted the patient has been receiving his prescription of diazepam earlier each month for the last 3 months. Patient received a prescription for 5 mg diazepam 60 pill count on June 13 then again on July 11; however, August 06 he received 75 pills. Looking further back May 01 the patient received 40 pills of hydrocodone and April 04, he received 25 pills of hydrocodone. On April 13 he received 40 pills of oxycodone. Patient is alert and orientated to person, place, time and circumstance. Mood is euthymic with congruent affect. Patient denies suicidal and homicidal ideation disclosing he has been sad and stressed because of unemployment. Patient arrived to [facility] highly intoxicated. Patient denies homicidal ideation. Patient denies auditory and visual hallucinations. Delusions are absent behaviors congruent with intact reality based presentation i.e. organized , linear, rational thinking. Eye contact was good. Conversational speech was within normal rate tone and prosody. Intellectual abilities appear to be within the average range. Attention and concentration are good. Insight, judgment, impulse control are poor do to alcoholism. 311 (F32.9) Unspecified Depressive Disorder by history 291.9 (F10.99) Unspecified Alcohol-Related Disorder by history Impression\\plan: Patient is recommended for rescind of IVC and is considered psychiatrically clear. Patient does not meet IVC criteria per ID GS 122C. Patient denies suicidal or homicidal ideation. Delusions are absent and behaviors congruent with intact reality based presentation. Patient arrived to [facility] highly intoxicated, He denies alcohol abuse; however, patient does have a charted history of alcoholism. Patient [place] substance abuse report indicates possible concern for prescription pill misuse taking in consideration the patient's history of addition. Patient is recommended to continue outpatient therapy through his provider. Dr. Marrero was consulted and the care management of this patient; attending physician is agreement with recommendations and disposition.
[2017-09-07 10:40] VITALS: BP 142/105
== END 2017-09-07 10:35 | disposition home or self-care (01) ==
LOC: ER 19:29
DX: T42.4X1A Poisoning by benzodiazepines, accidental (unintentional), initial encounter (principal); F32.9 Major depressive disorder, single episode, unspecified; F10.920 Alcohol use, unspecified with intoxication, uncomplicated; Z87.891 Personal history of nicotine dependence
CPT/HCPCS: 36415; 80053; 80307; 81001; 85025; 93005; 93010; 99285

== ENCOUNTER → 2018-01-17 | Day surgery (SDC) | payer BC ==
--- NOTE | 2018-01-17 15:39 | RADIOLOGY REPORT (SQ) ---
EXAM DESCRIPTION: ARTHRO SHOULDER; FLUORO/NEEDLE PLACEMENT COMPLETED DATE/TIME: 01/17/2018 3:16 pm REASON FOR STUDY: L SHOULDER PAIN M25.512 PAIN IN LEFT SHOULDER COMPARISON: Shoulder MR arthrogram 06/21/2016 FLUOROSCOPY TIME: 10 seconds 1 digital radiographic images saved to PACS. LIMITATIONS: None. PROCEDURE: Procedure, risks, benefits and alternatives explained to patient who then gave written co nsent. The posterior left shoulder was marked and a time out was called for correct procedure verific ation. Posterior entry site marked using fluoroscopic guidance. Shoulder prepped and draped using s terile technique. Local anesthesia achieved using 6 mL of 1% lidocaine injection. 22 gauge spinal n eedle introduced into the joint space under direct fluoroscopic visualization. Non-ionic contrast ins tilled to confirm intra-articular position. Dilute gadolinium solution then injected. Needle removed and entry site covered with sterile bandage. No immediate complications noted. TECHNIQUE: Digital images acquired during fluoroscopy and stored on PACS. Patient immediately take n to the MR suite for additional imaging. INJECTION LOCATION: Left posterior glenohumeral joint CONTRAST TYPE AND AMOUNT: 1 mL of Isovue-300 was injected to confirm intra-articular needle placement followed by 10 mL of dilute Prohance/Saline mixture. IMPRESSION: SUCCESSFUL NEEDLE PLACEMENT AND INJECTION FOR LEFT SHOULDER MR ARTHROGRAM USING POSTERIO R APPROACH. COMMENT: Quality ID 145: Final reports for procedures using fluoroscopy that document radiation exp osure indices, or exposure time and number of fluorographic images (if radiation exposure indices are not available) TECHNICAL DOCUMENTATION: JOB ID: [id number] [employer]- All Rights Reserved Reading location - IP/workstation name: [email or web address]
--- NOTE | 2018-01-17 15:39 | RADIOLOGY REPORT (SQ) ---
EXAM DESCRIPTION: ARTHRO SHOULDER; FLUORO/NEEDLE PLACEMENT COMPLETED DATE/TIME: 01/17/2018 3:16 pm REASON FOR STUDY: L SHOULDER PAIN M25.512 PAIN IN LEFT SHOULDER COMPARISON: Shoulder MR arthrogram 06/21/2016 FLUOROSCOPY TIME: 10 seconds 1 digital radiographic images saved to PACS. LIMITATIONS: None. PROCEDURE: Procedure, risks, benefits and alternatives explained to patient who then gave written co nsent. The posterior left shoulder was marked and a time out was called for correct procedure verific ation. Posterior entry site marked using fluoroscopic guidance. Shoulder prepped and draped using s terile technique. Local anesthesia achieved using 6 mL of 1% lidocaine injection. 22 gauge spinal n eedle introduced into the joint space under direct fluoroscopic visualization. Non-ionic contrast ins tilled to confirm intra-articular position. Dilute gadolinium solution then injected. Needle removed and entry site covered with sterile bandage. No immediate complications noted. TECHNIQUE: Digital images acquired during fluoroscopy and stored on PACS. Patient immediately take n to the MR suite for additional imaging. INJECTION LOCATION: Left posterior glenohumeral joint CONTRAST TYPE AND AMOUNT: 1 mL of Isovue-300 was injected to confirm intra-articular needle placement followed by 10 mL of dilute Prohance/Saline mixture. IMPRESSION: SUCCESSFUL NEEDLE PLACEMENT AND INJECTION FOR LEFT SHOULDER MR ARTHROGRAM USING POSTERIO R APPROACH. COMMENT: Quality ID 145: Final reports for procedures using fluoroscopy that document radiation exp osure indices, or exposure time and number of fluorographic images (if radiation exposure indices are not available) TECHNICAL DOCUMENTATION: JOB ID: [id number] [employer]- All Rights Reserved Reading location - IP/workstation name: [email or web address]
--- NOTE | 2018-01-17 17:00 | RADIOLOGY REPORT (SQ) ---
EXAM DESCRIPTION: MRI LT UPPER JOINT WITH COMPLETED DATE/TIME: 01/17/2018 3:49 pm REASON FOR STUDY: L SHOULDER PAIN M25.512 PAIN IN LEFT SHOULDER TECHNIQUE: Left shoulder images acquired and stored on PACS. Oblique coronal, oblique sagittal, and axial imaging to include fat sensitive sequences as T1, water sensitive sequences as FST2/STIR, and c ontrast sensitive sequences as FST1. LIMITATIONS: None. FINDINGS: JOINT DISTENTION: Adequate distention for interpretation. No leakage of contrast from the intra-articular compartment into the subacromial/subdeltoid bursa. BONE MARROW AND CORTEX: No marrow signal abnormalities worrisome for occult fracture AC JOINT: Type 1 acromion. Mild acromioclavicular joint hypertrophy without narrowing of the subacrom ial space. GLENOHUMERAL JOINT: There is moderate chondromalacia at the glenohumeral joint. Normal alignment. ROTATOR CUFF: Intact without significant tendinopathy, partial or full-thickness tears. No peritendin itis. LABRUM AND BICEPS LABRAL COMPLEX: Intra-articular long head biceps tendon is not identified. There h as been extensive reconstruction of the labrum with multiple tacks along the glenoid. Diffusely smal l and irregular labrum is present without paralabral cysts. ADJACENT SOFT TISSUES: No masses or nodes. OTHER: No other significant finding. IMPRESSION: Intra-articular long head biceps tendon is no longer identified. No evidence of tenodes is in the bicipital groove. Multiple tacks along the glenoid anchoring and diffusely small and irregular labrum. Moderate chondromalacia at the glenohumeral joint TECHNICAL DOCUMENTATION: JOB ID: [id number]- All Rights Reserved COMPARISON: None. MRI left shoulder 06/21/2016, 04/20/2015 Reading location - IP/workstation name: [facility]
== END ==
LOC: RAD 14:38
PROVIDERS: ATTEND Nurse Practitioner Family
DX: M25.512 Pain in left shoulder (principal)
CPT/HCPCS: 73040; 77002

== ENCOUNTER → 2018-04-09 | Outpatient (CLI) | payer BC ==
[2018-04-09 08:53] LABS: ABSOLUTE EOSINOPHILS # (AUTO) 0.2 10^3/uL (0.0-0.6); ABSOLUTE LYMPHOCYTES (AUTO) 1.3 10^3/uL (0.5-4.7); ABSOLUTE MONOCYTES (AUTO) 0.6 10^3/uL (0.1-1.4); ABSOLUTE NEUT (AUTO) 3.6 10^3/uL (1.7-8.2); BASOPHILS % (AUTO) 0.6 % (0-2); EOSINOPHILS % (AUTO) 3.7 % (0-6); HEMATOCRIT 44.3 % (37.9-51.0); HEMOGLOBIN 15.2 g/dL (13.5-17.0); MEAN CORPUSCULAR HEMOGLOBIN 29.4 pg (27.0-33.4); MEAN CORPUSCULAR HGB CONC 34.2 g/dL (32.0-36.0); MEAN CORPUSCULAR VOLUME 86 fl (80-97); MONOCYTES % (AUTO) 9.7 % (3-13); PLATELET COUNT 191 10^3/uL (150-450); RED BLOOD COUNT 5.15 10^6/uL (4.35-5.55); RED CELL DISTRIBUTION WIDTH 12.9 % (11.5-14.0); TOTAL CELLS COUNTED % (AUTO) 100 %; WHITE BLOOD COUNT 5.7 10^3/uL (4.0-10.5)
[2018-04-09 09:31] LABS: ALANINE AMINOTRANSFERASE 30 U/L (21-72); ALBUMIN 4.1 g/dL (3.5-5.0); ALKALINE PHOSPHATASE 60 U/L (38-126); ANION GAP 8 (5-19); ASPARTATE AMINO TRANSFERASE 27 U/L (17-59); BILIRUBIN,DIRECT 0.3 mg/dL (0.0-0.4); BILIRUBIN,TOTAL 0.5 mg/dL (0.2-1.3); BLOOD UREA NITROGEN 15 mg/dL (7-20); CALCIUM 9.4 mg/dL (8.4-10.2); CARBON DIOXIDE 29 mmol/L (22-30); CHLORIDE 105 mmol/L (98-107); CHOLESTEROL 185.48 mg/dL (0-200); GLUCOSE 91 mg/dL (75-110); POTASSIUM 4.5 mmol/L (3.6-5.0); SODIUM 141.5 mmol/L (137-145); TOTAL PROTEIN 6.8 g/dL (6.3-8.2); TRIGLYCERIDES 107 mg/dL (<150)
[2018-04-09 09:42] LABS: DIRECT LDL 117 mg/dL (<100)
[2018-04-12 11:10] LABS: VMA/CREATININE RANDOM URINE 1.7 mg/g Creat (0.0-6.0)
== END ==
LOC: OD 07:19
PROVIDERS: ATTEND Internal Medicine
DX: D64.9 Anemia, unspecified (principal); E78.2 Mixed hyperlipidemia; R10.9 Unspecified abdominal pain; E03.9 Hypothyroidism, unspecified; N39.0 Urinary tract infection, site not specified; R03.0 Elevated blood-pressure reading, without diagnosis of hypertension
CPT/HCPCS: 36415; 80053; 80061; 82570; 84443; 84585; 85025

== ENCOUNTER → 2018-04-10 | Outpatient (CLI) | payer BC ==
--- NOTE | 2018-04-10 17:20 | XCELERA REPORT ---
[address] [address] Transthoracic Echocardiogram Report Name: HEYDI WILLETT Age: 33 yrs Gender: Male : 1985 Patient Status: Outpatient Patient Location: Study Date: 04/10/2018 11:02 AM Procedure: A complete two-dimensional transthoracic echocardiogram was performed (2D, M-mode, spectral and color flow Doppler). The study was technically adequate with some images being suboptimal in quality. Reason For Study: CARDIOMEGALY Ordering Physician: MARIMAR VERDUGO Performed By: Brittanie Jacobo Interpretation Summary The left ventricular ejection fraction is normal. There is borderline concentric left ventricular hypertrophy. The left ventricle is grossly normal size. Doppler measurements suggest normal left ventricular diastolic function Wall motion cannot be accurately commented on, but no definite regional wall motion abnormalities noted. The right ventricle is borderline dilated. The right ventricular systolic function is normal. Borderline right atrial enlargement. The left atrial size is normal. There is a mild amount of mitral regurgitation There is no mitral valve stenosis. There is no aortic valve stenosis No aortic regurgitation is present. There is a trace or physiologic amount of tricuspid regurgitation Tricuspid regurgitation jet envelope not well defined to measure RV systolic pressure accurately. The aortic root is not well visualized but is probably normal size. The inferior vena cava appeared normal and decreased > 50% with respiration (RAP 5-10 mmHg) There is no pericardial effusion. MMode/2D Measurements & Calculations RVDd: 3.5 cm LVIDd: 5.4 cm FS: 32.3 % Ao root diam: 3.3 cm IVSd: 0.83 cm LVIDs: 3.7 cm EDV(Teich): 144.3 ml Ao root area: 8.6 cm2 LVPWd: 0.68 cm ESV(Teich): 57.7 ml EF(Teich): 60.1 % Doppler Measurements & Calculations MV E max socorro: MV dec slope: Ao V2 max: LV V1 max P.6 cm/sec 113.9 cm/sec 3.0 mmHg MV A max socorro: 335.3 cm/sec2 Ao max P.2 mmHgLV V1 max: 43.6 cm/sec MV dec time: 0.16 sec 86.0 cm/sec MV E/A: 1.2 PA V2 max: PI end-d socorro: TR max socorro: 109.7 cm/sec 73.7 cm/sec 263.4 cm/sec PA max P.8 mmHg TR max P.7 mmHg Left Ventricle The left ventricle is grossly normal size. There is borderline concentric left ventricular hypertrophy. The left ventricular ejection fraction is normal. Doppler measurements suggest normal left ventricular diastolic function. Wall motion cannot be accurately commented on, but no definite regional wall motion abnormalities noted. Right Ventricle The right ventricle is borderline dilated. The right ventricular systolic function is normal. Atria Borderline right atrial enlargement. The left atrial size is normal. Interarterial septum not well visualized and not well dopplered. Cannot comment on ASD/PFO presence. Mitral Valve The mitral valve is grossly normal. There is no mitral valve stenosis. There is a mild amount of mitral regurgitation. Aortic Valve The aortic valve is grossly normal. There is no aortic valve stenosis. No aortic regurgitation is present. Tricuspid Valve The tricuspid valve is not well visualized, but is grossly normal. There is no tricuspid stenosis. There is a trace or physiologic amount of tricuspid regurgitation. Tricuspid regurgitation jet envelope not well defined to measure RV systolic pressure accurately. Pulmonic Valve The pulmonic valve is not well visualized. Great Vessels The aortic root is not well visualized but is probably normal size. The inferior vena cava appeared normal and decreased > 50% with respiration (RAP 5-10 mmHg). Effusions There is no pericardial effusion. : MARIMAR VERDUGO > Shahriar Aguilar
== END ==
LOC: SP 10:30
PROVIDERS: ATTEND Internal Medicine
DX: I51.7 Cardiomegaly (principal)
CPT/HCPCS: 93306

== ENCOUNTER → 2018-08-10 | Outpatient (CLI) | payer BC, MEDICARE ==
[2018-08-10 08:40] LABS: ANION GAP 10 (5-19); BLOOD UREA NITROGEN 15 mg/dL (7-20); CALCIUM 9.9 mg/dL (8.4-10.2); CARBON DIOXIDE 31 mmol/L (22-30); CHLORIDE 100 mmol/L (98-107); CHOLESTEROL 217.08 mg/dL (0-200); GLUCOSE 100 mg/dL (75-110); POTASSIUM 4.6 mmol/L (3.6-5.0); SODIUM 141.4 mmol/L (137-145); TRIGLYCERIDES 137 mg/dL (<150)
[2018-08-10 08:52] LABS: DIRECT LDL 131 mg/dL (<100)
== END ==
LOC: OD 07:05
PROVIDERS: ATTEND Internal Medicine
DX: E78.5 Hyperlipidemia, unspecified (principal); N19 Unspecified kidney failure
CPT/HCPCS: 36415; 80048; 80061

== ENCOUNTER → 2019-08-16 | Outpatient (CLI) | payer BC, MEDICARE ==
[2019-08-16 08:36] LABS: ALBUMIN 4.7 g/dL (3.5-5.0); ALKALINE PHOSPHATASE 60 U/L (38-126); ANION GAP 10 (5-19); ASPARTATE AMINO TRANSFERASE 29 U/L (17-59); BILIRUBIN,DIRECT 0.3 mg/dL (0.0-0.4); BILIRUBIN,TOTAL 0.7 mg/dL (0.2-1.3); BLOOD UREA NITROGEN 17 mg/dL (7-20); CALCIUM 10.1 mg/dL (8.4-10.2); CARBON DIOXIDE 32 mmol/L (22-30); CHLORIDE 99 mmol/L (98-107); CHOLESTEROL 206.09 mg/dL (0-200); GLUCOSE 97 mg/dL (75-110); TOTAL PROTEIN 7.8 g/dL (6.3-8.2); TRIGLYCERIDES 143 mg/dL (<150)
[2019-08-16 08:47] LABS: DIRECT LDL 130 mg/dL (<100)
== END ==
LOC: OD 07:11
PROVIDERS: ATTEND Nurse Practitioner Psychiatric/Mental Health
DX: F31.4 Bipolar disorder, current episode depressed, severe, without psychotic features (principal); Z79.899 Other long term (current) drug therapy
CPT/HCPCS: 36415; 80053; 80061; 80164

== ENCOUNTER 2019-08-28 08:26 | Emergency (ER) | payer BC, MEDICARE ==
[2019-08-28 08:34] VITALS: BP 142/98
--- NOTE | 2019-08-28 11:49 | RADIOLOGY REPORT (SQ) ---
EXAM DESCRIPTION: VENOUS UNILATERAL LOWER COMPLETED DATE/TIME: 08/28/2019 11:16 am REASON FOR STUDY: right lower ext pain/hx dvt COMPARISON: None. TECHNIQUE: Dynamic and static pisano scale and color images acquired of the right leg venous system. S elected spectral images acquired with additional compression and augmentation maneuvers. The contrala teral common femoral vein and saphenofemoral junction were also imaged. Images stored on PACS. LIMITATIONS: None. FINDINGS: COMMON FEMORAL: Normal phasicity, compression and augmentation. No visualized echogenic ma terial on pisano scale. No defects on color images. FEMORAL: Normal compression and augmentation. No visualized echogenic material on pisano scale. No defe cts on color images. POPLITEAL: Normal compression, augmentation. No visualized echogenic material on pisano scale. No defec ts on color images. CALF VESSELS: There is decreased compressibility and intraluminal filling defect within the peroneal vein compatible with DVT. GSV and SSV: Normal compression, augmentation. No visualized echogenic material on pisano scale. No def ects on color images. ANY DEEP VENOUS INSUFFICIENCY: Not evaluated. ANY EVIDENCE OF POPLITEAL CYST: No. OTHER: No other significant finding. CONTRALATERAL COMMON FEMORAL VEIN AND SAPHENOFEMORAL JUNCTION: Normal phasicity, compression and augmentation. No visualized echogenic material on pisano scale. No de fects on color images. IMPRESSION: 1. Acute DVT within the right peroneal vein. 2. No evidence of extension into the popliteal or femoral veins. Findings discussed with Dr. Mccormack At 1140 hours on 08/28/2019 TECHNICAL DOCUMENTATION: JOB ID: [id number] [employer]- All Rights Reserved Reading location - IP/workstation name: [email or web address]
--- NOTE | 2019-08-28 11:50 | ER Document Report ---
ED Extremity Problem, Lower - General Chief Complaint: Leg Pain Stated Complaint: LEG PAIN Time Seen by Provider: 08/28/19 08:47 Primary Care Provider: CHARLENE BARAJAS MD [Primary Care Provider] - Follow up as needed Mode of Arrival: Ambulatory Information source: Patient TRAVEL OUTSIDE OF THE [place] IN LAST 30 DAYS: No - HPI Notes: Patient presents with right calf and posterior knee pain. He states he has had similar pain before when he has had blood clots. He states he has some type of unknown clotting disorder that is caused him to have multiple blood clots in the past. He states it does run in the family and both of his siblings have also had blood clots. He states the pain in the calf is been going on for several days. Is worse with movement and better with rest. It is mild to moderate in intensity. It is been mainly constant. It does radiate down the right leg. He denies any other injuries or problems. No shortness of breath or chest pain. - Related Data Allergies/Adverse Reactions: amoxicillin [Amoxicillin] Allergy (Mild, Verified 08/28/19 09:08) azithromycin [From Zithromax] Allergy (Verified 08/28/19 09:09) clindamycin Allergy (Verified 08/28/19 09:09) Past Medical History - General Information source: Patient - Social History Smoking Status: Never Smoker Chew tobacco use (# tins/day): No Frequency of alcohol use: None Drug Abuse: None Family History: Reviewed & Not Pertinent Patient has suicidal ideation: No Patient has homicidal ideation: No Neurological Medical History: Reports: Hx Migraine Renal/ Medical History: Denies: Hx Peritoneal Dialysis Musculoskeletal Medical History: Reports Hx Musculoskeletal Deformity - ankle, shoulder, hip, Reports Hx Musculoskeletal Trauma Psychiatric Medical History: Reports: Hx Anxiety, Hx Depression Traumatic Medical History: Reports: Hx Fractures Past Surgical History: Reports: Hx Orthopedic Surgery - Immunizations Hx Diphtheria, Pertussis, Tetanus Vaccination: Yes Review of Systems - Review of Systems Constitutional: denies: Chills, Fever Cardiovascular: denies: Chest pain, Palpitations Respiratory: denies: Cough, Short of breath -: Yes All other systems reviewed and negative Physical Exam - Vital signs Vitals: Temp Pulse Resp BP Pulse Ox 97.7 F 65 16 142/98 H 100 08/28/19 08:31 08/28/19 08:31 08/28/19 08:31 08/28/19 08:31 08/28/19 08:31 Interpretation: Normal - General General appearance: Appears well, Alert - HEENT Head: Normocephalic, Atraumatic Eyes: Normal Pupils: PERRL - Respiratory Respiratory status: No respiratory distress Chest status: Nontender Breath sounds: Normal Chest palpation: Normal - Cardiovascular Rhythm: Regular Heart sounds: Normal auscultation Murmur: No - Abdominal Inspection: Normal Distension: No distension Bowel sounds: Normal Tenderness: Nontender Organomegaly: No organomegaly - Back Back: Normal, Nontender - Extremities General upper extremity: Normal inspection, Nontender, Normal color, Normal ROM, Normal temperature General lower extremity: Normal inspection, Tender - Patient has some mild tenderness to palpation of the popliteal area, Normal color, Normal ROM, Normal temperature, Normal weight bearing. No: Miranda's sign - Neurological Neuro grossly intact: Yes Cognition: Normal Orientation: AAOx4 [place] Coma Scale Eye Opening: Spontaneous Jareth Coma Scale Verbal: Oriented Jareth Coma Scale Motor: Obeys Commands Jareth Coma Scale Total: 15 Speech: Normal Motor strength normal: LUE, RUE, LLE, RLE Sensory: Normal - Psychological Associated symptoms: Normal affect, Normal mood - Skin Skin Temperature: Warm Skin Moisture: Dry Skin Color: Normal Course - Re-evaluation Re-evalutation: 08/28/19 11:45 Patient has a peroneal vein DVT. I am going to start the patient on Eliquis and follow-up with his primary care physician - Vital Signs Vital signs: Temp Pulse Resp BP Pulse Ox 97.7 F 65 16 142/98 H 100 08/28/19 08:31 08/28/19 08:31 08/28/19 08:31 08/28/19 08:31 08/28/19 08:31 - Diagnostic Test Radiology reviewed: Image reviewed, Reports reviewed Discharge - Discharge Clinical Impression: DVT (deep venous thrombosis) Qualifiers: DVT location: lower extremity Affected thrombotic vein of extremity: peroneal Chronicity: acute Laterality: right Qualified Code(s): I82.451 - Acute embolism and thrombosis of right peroneal vein Condition: Stable Disposition: HOME, SELF-CARE Instructions: DVT Outpatient Treatment ([facility]) Additional Instructions: Please call your primary care physician as soon as possible to arrange follow-up Prescriptions: Rivaroxaban [Xarelto 15 mg Tablet] 15 mg PO BID 21 Days #42 tablet Forms: Return to Work Referrals: CHARLENE BARAJAS MD [Primary Care Provider] - Follow up in 3-5 days
== END 2019-08-28 12:33 | disposition home or self-care (01) ==
LOC: ER 08:26
DX: I82.451 Acute embolism and thrombosis of right peroneal vein (principal); M79.604 Pain in right leg
CPT/HCPCS: 93971; 99283

== ENCOUNTER 2020-04-04 14:07 | Emergency (ER) | payer BC, MEDICARE ==
[2020-04-04] MEDS ORDERED: NORMAL SALINE 1000 ML 1,000 ML IV ONE (14:28)
[2020-04-04 14:33] LABS: ABSOLUTE EOSINOPHILS # (AUTO) 0.1 10^3/uL (0.0-0.6); ABSOLUTE MONOCYTES (AUTO) 0.7 10^3/uL (0.1-1.4); ABSOLUTE NEUT (AUTO) 3.2 10^3/uL (1.7-8.2); BASOPHILS % (AUTO) 0.8 % (0-2); HEMATOCRIT 47.3 % (37.9-51.0); HEMOGLOBIN 16.6 g/dL (13.5-17.0); LYMPHOCYTES % (AUTO) 33.5 % (13-45); MEAN CORPUSCULAR HEMOGLOBIN 30.6 pg (27.0-33.4); MEAN CORPUSCULAR VOLUME 87 fl (80-97); MONOCYTES % (AUTO) 11.7 % (3-13); PLATELET COUNT 270 10^3/uL (150-450); RED BLOOD COUNT 5.41 10^6/uL (4.35-5.55); RED CELL DISTRIBUTION WIDTH 13.5 % (11.5-14.0); TOTAL CELLS COUNTED % (AUTO) 100 %
[2020-04-04 14:40] LABS: INTERNATIONAL RATION (INR) 1.01; PROTHROMBIN TIME 13.5 SEC (11.4-15.4)
[2020-04-04 14:41] LABS: PARTIAL THROMBOPLASTIN TIME 30.9 SEC (23.5-35.8)
[2020-04-04 14:44] LABS: ALCOHOL 223 mg/dL (NONE DETECTED); ALKALINE PHOSPHATASE 58 U/L (38-126); ANION GAP 11 (5-19); ASPARTATE AMINO TRANSFERASE 35 U/L (17-59); BILIRUBIN,DIRECT 0.4 mg/dL (0.0-0.4); BLOOD UREA NITROGEN 6 mg/dL (7-20); CALCIUM 9.4 mg/dL (8.4-10.2); CARBON DIOXIDE 27 mmol/L (22-30); CHLORIDE 102 mmol/L (98-107); CREATINE KINASE 227 U/L (55-170); GLUCOSE 90 mg/dL (75-110); POTASSIUM 4.6 mmol/L (3.6-5.0); TOTAL PROTEIN 7.5 g/dL (6.3-8.2)
[2020-04-04 14:45] LABS: ACETAMINOPHEN < 10 ug/mL (10-30)
--- NOTE | 2020-04-04 14:55 | RADIOLOGY REPORT (SQ) ---
EXAM DESCRIPTION: CHEST SINGLE VIEW IMAGES COMPLETED DATE/TIME: 04/04/2020 2:40 pm REASON FOR STUDY: Altered mental status COMPARISON: Chest x-ray 02/24/2016, 09/30/2016. EXAM PARAMETERS: NUMBER OF VIEWS: One view. TECHNIQUE: Single frontal radiographic view of the chest acquired. RADIATION DOSE: NA LIMITATIONS: None. FINDINGS: LUNGS AND PLEURA: No consolidation, pneumothorax or pleural effusion. MEDIASTINUM AND HILAR STRUCTURES: No masses. Contour normal. HEART AND VASCULAR STRUCTURES: Heart normal in size. Normal vasculature. BONES: Postsurgical changes with orthopedic hardware at the bilateral shoulders. HARDWARE: None in the chest. IMPRESSION: NO ACUTE RADIOGRAPHIC FINDING IN THE CHEST. TECHNICAL DOCUMENTATION: JOB ID: [id number]-64 2010 [employer]- All Rights Reserved Reading location - IP/workstation name: [email or web address]
[2020-04-04 15:07] LABS: VENOUS BLOOD BASE EXCESS 0.6 mmol/L; VENOUS BLOOD HCO3 25.1 mmol/L (20-32); VENOUS BLOOD PCO2 40.3 mmHg (35-63); VENOUS BLOOD PH 7.41 (7.30-7.42)
[2020-04-04] MEDS ORDERED: DIPHENHYDRAMINE HCL 50 MG/ML VIAL IV ONE (15:36)
[2020-04-04] MEDS ORDERED: LORAZEPAM INJ 2 MG/1 ML VIAL IV ONE (15:36)
[2020-04-04 15:39] LABS: APPEARANCE,URINE CLEAR; BILIRUBIN,URINE NEGATIVE (NEGATIVE); COLOR,URINE YELLOW; GLUCOSE, URINE NEGATIVE (NEGATIVE); KETONES,URINE NEGATIVE (NEGATIVE); LEUKOCYTE ESTERASE,URINE NEGATIVE (NEGATIVE); NITRITE,URINE NEGATIVE (NEGATIVE); PROTEIN,URINE NEGATIVE (NEGATIVE); URINE SPECIFIC GRAVITY 1.006; UROBILINOGEN,URINE NEGATIVE mg/dL (<2.0)
[2020-04-04 16:01] LABS: URINE AMPHETAMINES SCREEN NEGATIVE; URINE BARBITURATES SCREEN NEGATIVE; URINE BENZODIAZEPINES SCREEN UNCONFIRMED POSITIVE; URINE COCAINE SCREEN UNCONFIRMED POSITIVE; URINE MARIJUANA (THC) SCREEN NEGATIVE; URINE METHADONE SCREEN NEGATIVE; URINE PHENCYCLIDINE SCREEN NEGATIVE
[2020-04-04 16:09] LABS: LITHIUM < 0.2 mEq/L (0.6-1.2)
--- NOTE | 2020-04-04 16:51 | RADIOLOGY REPORT (SQ) ---
EXAM DESCRIPTION: CT HEAD WITHOUT; CT CERVICAL SPINE WITHOUT IMAGES COMPLETED DATE/TIME: 04/04/2020 4:36 pm REASON FOR STUDY: ams; altered menta status?trauma COMPARISON: See below. TECHNIQUE: Axial images acquired through the brain and cervical spine without intravenous contrast. Images reviewed with brain, subdural, lung, soft tissue and bone windows. Reconstructed coronal and sagittal MPR images reviewed. Images stored on PACS. All CT scanners at this facility use dose modulation, iterative reconstruction, and/or weight based d osing when appropriate to reduce radiation dose to as low as reasonably achievable (ALARA). [facility]: Dose Right [facility]: CareDose [facility]: Dose Right [facility]: Teradose 4D [facility]: [employer] RADIATION DOSE: CT Rad equipment meets quality standard of care and radiation dose reduction techniq ues were employed. CTDIvol: 53.2 mGy. DLP: 964 mGy-cm.; CT Rad equipment meets quality standard of ca re and radiation dose reduction techniques were employed. CTDIvol: 16.7 mGy. DLP: 399 mGy-cm. mGy. LIMITATIONS: None. FINDINGS: Brain 2016 comparison. Normal study. No hemorrhage or mass or shift or fracture or sinus fluid or orbit p athology. Cervical spine Normal alignment. No fracture or bone lesion. Soft tissues intact, no lung apical pathology. IMPRESSION: 1. Negative brain. 2. Negative cervical spine. TECHNICAL DOCUMENTATION: JOB ID: [id number] Quality ID # [id number]: Final reports with documentation of one or more dose reduction techniques (e.g., Au tomated exposure control, adjustment of the mA and/or kV according to patient size, use of iterative reconstruction technique) 2010 [employer]- All Rights Reserved Reading location - IP/workstation name: [email or web address]
--- NOTE | 2020-04-04 16:51 | RADIOLOGY REPORT (SQ) ---
EXAM DESCRIPTION: CT HEAD WITHOUT; CT CERVICAL SPINE WITHOUT IMAGES COMPLETED DATE/TIME: 04/04/2020 4:36 pm REASON FOR STUDY: ams; altered menta status?trauma COMPARISON: See below. TECHNIQUE: Axial images acquired through the brain and cervical spine without intravenous contrast. Images reviewed with brain, subdural, lung, soft tissue and bone windows. Reconstructed coronal and sagittal MPR images reviewed. Images stored on PACS. All CT scanners at this facility use dose modulation, iterative reconstruction, and/or weight based d osing when appropriate to reduce radiation dose to as low as reasonably achievable (ALARA). [facility]: Dose Right [facility]: CareDose [facility]: Dose Right [facility]: Teradose 4D [facility]: [employer] RADIATION DOSE: CT Rad equipment meets quality standard of care and radiation dose reduction techniq ues were employed. CTDIvol: 53.2 mGy. DLP: 964 mGy-cm.; CT Rad equipment meets quality standard of ca re and radiation dose reduction techniques were employed. CTDIvol: 16.7 mGy. DLP: 399 mGy-cm. mGy. LIMITATIONS: None. FINDINGS: Brain 2016 comparison. Normal study. No hemorrhage or mass or shift or fracture or sinus fluid or orbit p athology. Cervical spine Normal alignment. No fracture or bone lesion. Soft tissues intact, no lung apical pathology. IMPRESSION: 1. Negative brain. 2. Negative cervical spine. TECHNICAL DOCUMENTATION: JOB ID: [id number] Quality ID # [id number]: Final reports with documentation of one or more dose reduction techniques (e.g., Au tomated exposure control, adjustment of the mA and/or kV according to patient size, use of iterative reconstruction technique) 2010 [employer]- All Rights Reserved Reading location - IP/workstation name: [email or web address]
--- NOTE | 2020-04-04 18:41 | PSYCHOLOGICAL NOTE ---
<SILVIA ROTH - Last Filed: 04/04/20 18:38> Psych Note - Psych Note Date seen by psych provider: 04/04/20 Time seen by psych provider: 15:16 Psych Note: Reason for Consult: AMS Patient arrived to [facility] ED via EMS for concerns of altered mental status. Patient has a documented history of both mental health and polysubstance abuse. He is currently unable to engage in evaluation. Chart review: Toxicology screening indicated probable positive for benzodiazepine and cocaine. BAL is 223. Patient's Depakote, lithium and carbamazepine (patient's reported psychiatric medications) are subtherapeutic Clinician presentation: Intoxication; polysubstance Psychiatric medication noncompliance Impression/Plan: Patient is recommended for 24 hour petition for evaluation; paperwork is signed and placed in patient's chart. Patient is currently presenting under the influence with impaired cognitive processes. Patient reportedly was inpatient detox at [facility] and discharged Monday03/30/2020. Evaluation is ongoing. Dr. Marrero was consulted in the care management of this patient; tending physicians in agreement with recommendations and disposition. <IRMA MARRERO - Last Filed: 04/05/20 09:11> Psych Note - Psych Note Psych Note: CORRECTION EDIT TO NARRATIVE "Clinician presentation" should read " Clinical Presentation"
--- NOTE | 2020-04-04 20:41 | EKG REPORT ---
SEVERITY:- ABNORMAL ECG - SINUS RHYTHM PROBABLE LEFT ATRIAL ABNORMALITY LEFT VENTRICULAR HYPERTROPHY BORDERLINE INFERIOR Q WAVES : Confirmed by: Ren Lazo MD 04-Apr-2020 20:41:03
--- NOTE | 2020-04-05 07:10 | ER Document Report ---
Entered by JACQUI ORONA SCRIBE 04/04/20 1429 Acting as scribe for:DEMI MAYNARD MD ED Psych Disorder / Suicide - General Chief Complaint: Overdose Stated Complaint: OVERDOSE Primary Care Provider: CHARLENE BARAJAS MD [Primary Care Provider] - Follow up as needed Mode of Arrival: Medic Information source: Emergency Med Personnel Notes: This 35 year old male patient presents to the emergency department today with complaints of altered mental status. This patient was altered when EMS arrived on scene and was combative, he was given a total of 400 mg of IM ketamine prior to arrival for sedation therefore he is unable to provide any history. EMS reports they were called by the patient's who was not on scene when they arrived. told EMS that he called her and was slurring his words which is "what he did the last time he overdosed". He is on multiple psychiatric medications for bipolar disorder. History is limited. TRAVEL OUTSIDE OF THE [place] IN LAST 30 DAYS: No - Related Data Allergies/Adverse Reactions: amoxicillin [Amoxicillin] Allergy (Mild, Verified 08/28/19 09:08) azithromycin [From Zithromax] Allergy (Verified 08/28/19 09:09) clindamycin Allergy (Verified 08/28/19 09:09) Past Medical History - General Information source: Emergency Med Personnel, [facility] Records Cannot obtain history due to: Altered mental status - Social History Smoking Status: Unknown if Ever Smoked Lives with: Spouse/Significant other Family History: Reviewed & Not Pertinent Neurological Medical History: Reports: Hx Migraine Musculoskeletal Medical History: Reports Hx Musculoskeletal Deformity - ankle, shoulder, hip, Reports Hx Musculoskeletal Trauma Psychiatric Medical History: Reports: Hx Anxiety, Hx Depression Traumatic Medical History: Reports: Hx Fractures Past Surgical History: Reports: Hx Orthopedic Surgery - Immunizations Hx Diphtheria, Pertussis, Tetanus Vaccination: Yes Review of Systems - Review of Systems -: Yes ROS unobtainable due to patient's medical condition - was given ketamine by EMS Physical Exam - Vital signs Vitals: Temp 98.0 F 04/04/20 14:07 - Notes Notes: Physical Exam: General: Altered, given ketamine. Blank stare. HEENT: Normocephalic. Atraumatic. PERRL. Extraocular movements intact. Oropharynx clear. Neck: Supple. Non-tender. Respiratory: No respiratory distress. Clear and equal breath sounds bilaterally. Cardiovascular: Regular rate and rhythm. Abdominal: Normal Inspection. Non-tender. No distension. Normal Bowel Sounds. Back: No gross abnormalities. Extremities: Moves all four extremities. Upper extremities: Normal inspection. Normal ROM. Lower extremities: Normal inspection. No edema. Normal ROM. Neurological: Unable to assess, sedated with ketamine. Psychological: Unable to assess, sedated with ketamine. Skin: Warm. Dry. Normal color. Course - Re-evaluation Re-evalutation: 04/04/20 18:00 Patient resting comfortably asleep at this time. 04/04/20 18:05 Patient is on involuntary commitment document at this time due to the behavior which he presented with requiring patient to be sedated by EMS prior to arrival and further sedation required due to patient's noncompliance and uncooperation with staff. Patient will be continued to be followed by the mental health services and advised on appropriate medications etc. Patient is medically cleared at this time. - Vital Signs Vital signs: Temp Pulse Resp BP Pulse Ox 98.0 F 17 124/88 H 95 04/04/20 14:07 04/04/20 17:00 04/04/20 16:32 04/04/20 15:01 Vital signs stable no acute process - Laboratory Result Diagrams: 04/04/20 13:50 04/04/20 13:50 Laboratory results interpreted by me: 04/04/20 04/04/20 04/04/20 13:50 13:50 14:45 BUN 6 L Ammonia 39.1 H Creatine Kinase 227 H Urine Blood Acetaminophen < 10 L Valproic Acid 20.5 L Carbamazepine [place] < 0.2 L 04/04/20 04/04/20 15:12 15:50 BUN Ammonia Creatine Kinase Urine Blood MODERATE H Acetaminophen Valproic Acid Carbamazepine < 2.4 L [facility] show polysubstance abuse in the urine drug screen moderate blood noted on the urine. Patient's carbamazepine level is less than therapeutic valproic acid less than therapeutic level lithium level undetectable,) uncertain if patient should be on lithium). Ammonia level 39 slightly elevated. 04/04/20 18:03 Also elevated alcohol level 223 and cocaine also noted on the urine drug screen along with benzodiazepines. Laboratory survey suggested patient is noncompliant on his medications and also using and abusing illicit drugs. - Diagnostic Test Radiology reviewed: Image reviewed, Reports reviewed Radiology results interpreted by me: 04/04/20 15:39 Chest x-ray shows no acute process. 04/04/20 18:06 CT scan of head and CT scan of cervical spine shows both to be normal not showing any acute process. - EKG Interpretation by Me Additional EKG results interpreted by me: 04/04/20 15:38 Twelve-lead EKG shows normal sinus rhythm rate of 95 left ventricular hypertrophy noted borderline inferior Q waves no acute ST-T wave changes. Discharge - Discharge Clinical Impression: Polysubstance abuse, Bipolar disease, chronic Condition: Good Disposition: PSYCH HOSP/UNIT Referrals: CHARLENE BARAJAS MD [Primary Care Provider] - Follow up as needed I personally performed the services described in the documentation, reviewed and edited the documentation which was dictated to the scribe in my presence, and it accurately records my words and actions.
--- NOTE | 2020-04-05 18:01 | ER Document Report ---
Doctor's Note Notes: 04/05/20 17:55 PHYSICAL EXAMINATION: GENERAL: Appears well, healthy, well-nourished, no acute distress. LUNGS: Equal breath sounds bilaterally and clear to auscultation. No wheezes rales or rhonchi. CARDIOVASCULAR: S1-S2, regular rate, regular rhythm. Radial pulses 2+, normal. ABDOMEN: Normoactive bowel sounds. Soft, nontender, no guarding, no rebound tenderness, and no masses palpated. PSYCH: Normal mood, normal affect. Patient denies any suicidal or homicidal ideation. Dr. Marrero had an extensive conversation with the patient in regards to the patient's medications. We will add Zyprexa 2.5 mg twice daily. Patient will follow-up on an outpatient basis. Follow-up precautions were given. Verbal discharge instructions were given to the patient. They verbalized understanding. They are stable for discharge.
[2020-04-05 18:05] VITALS: BP 152/104
== END 2020-04-05 18:08 | disposition home or self-care (01) ==
LOC: ER 14:07
DX: F19.10 Other psychoactive substance abuse, uncomplicated (principal); F31.89 Other bipolar disorder; R41.82 Altered mental status, unspecified; Y90.7 Blood alcohol level of 200-239 mg/100 ml
CPT/HCPCS: 93005; 99285; 96361; 96374; 96375; 36415; 87040; 80307 ×3; 82140; 82550; 83605; 80178; 80156; 85025; 85610; 85730; 80053; 81001; 84484; 80164; 82803; 71045; 70450; 72125; 93010; J1200; J2060; J7030

== ENCOUNTER → 2020-08-21 | Outpatient (CLI) | payer BC, MEDICARE ==
[~2020-08-21] MED LIST: COVID-19 VACCINE (PFIZER)/PF 30 MCG/0.3 ML VIAL IM ONE; EPINEPHRINE INJ/PF 1 MG/1 ML AMPULE IM PRN
== END ==
LOC: EMPHEALTH 06:57
PROVIDERS: ATTEND Internal Medicine
DX: Z23 Encounter for immunization (principal)
CPT/HCPCS: 91300